=== PATIENT | male | born 2000 | race American Indian/Alaskan Native ===

== ENCOUNTER 2018-04-17 15:55 | Emergency (ER) | payer SELFPAY ==
--- NOTE | 2018-04-17 17:56 | Emergency Department Report ---
Blank Doc - Documentation Documentation: 17 y.o. male presents with pain to bilateral great toes from ingrown toenails x 1 week. Pain is 6/10 on pain scale. no other cc Fast Track for evaluation
[2018-04-17] MEDS ORDERED: TYLENOL PO ONE (21:45)
[2018-04-17] MEDS ORDERED: TYLENOL ONE (21:48)
--- NOTE | 2018-04-17 22:43 | Emergency Department Report ---
ED Lower Extremity HPI - General Chief Complaint: Extremity Injury, Lower Stated Complaint: INGROWN TOENAIL Time Seen by Provider: 04/17/18 17:53 Source: patient Mode of arrival: Ambulatory Limitations: No Limitations - Related Data Previous Rx's Medication Instructions Recorded Last Taken Type Cephalexin [Keflex] 500 mg PO TID 10 Days #30 capsule 04/17/18 Unknown Rx Ibuprofen 800 mg PO TID PRN #30 tablet 04/17/18 Unknown Rx Terbinafine HCl [Lamisil At] 30 gm TP BID 14 Days #1 tube 04/17/18 Unknown Rx Allergies Allergy/AdvReac Type Severity Reaction Status Date / Time No Known Allergies Allergy Verified 04/17/18 21:48 ED Review of Systems ROS: Stated complaint: INGROWN TOENAIL Other details as noted in HPI ED Past Medical Hx - Social History Smoking Status: Never Smoker Substance Use Type: Marijuana - Medications Home Medications: Home Medications Medication Instructions Recorded Confirmed Last Taken Type Cephalexin [Keflex] 500 mg PO TID 10 Days #30 capsule 04/17/18 Unknown Rx Ibuprofen 800 mg PO TID PRN #30 tablet 04/17/18 Unknown Rx Terbinafine HCl [Lamisil At] 30 gm TP BID 14 Days #1 tube 04/17/18 Unknown Rx ED Physical Exam - General Limitations: No Limitations ED Course Vital Signs 04/17/18 04/17/18 17:54 22:03 Temperature 98.3 F Pulse Rate 60 Respiratory 16 18 Rate Blood Pressure 123/61 O2 Sat by Pulse 100 Oximetry Critical care attestation.: If time is entered above; I have spent that time in minutes in the direct care of this critically ill patient, excluding procedure time. ED Disposition Clinical Impression: Toe pain, bilateral Tinea pedis Qualifiers: Laterality: bilateral Qualified Code(s): B35.3 - Tinea pedis Disposition: DC-01 TO HOME OR SELFCARE Is pt being admited?: No Does the pt Need Aspirin: No Condition: Stable Instructions: Tinea Pedis (ED), Ingrown Nail (ED) Prescriptions: Cephalexin [Keflex] 500 mg PO TID 10 Days #30 capsule Ibuprofen 800 mg PO TID PRN #30 tablet PRN Reason: pain Terbinafine HCl [Lamisil At] 30 gm TP BID 14 Days #1 tube Referrals: CHRISTINA,KASH, DPM [Referring] - 3-5 Days Forms: Work/School Release Form(ED) Time of Disposition: 22:43
--- NOTE | 2018-04-17 22:49 | Emergency Department Report ---
ED Lower Extremity HPI - General Chief Complaint: Extremity Injury, Lower Stated Complaint: INGROWN TOENAIL Time Seen by Provider: 04/17/18 17:53 Source: patient Mode of arrival: Ambulatory Limitations: No Limitations - History of Present Illness Initial Comments: pt presents for bilat toe pain with tinea and ingrown nails this is chronic problem with pain and erythema to left nail, no drainage no fever no chills no n/v pt is ambulatory without gait distrubance there is no bleeding no deformity no numbness or tingling MD Complaint: other (Tinea pedis ) Onset/Timin -: month(s) Injury: Foot: Right, Left (great toes ) Place: home Severity: moderate Severity scale (0 -10): 3 Improves With: nothing, other (nothing tried ) Worsens With: movement, palpation Associated Symptoms: other (itching ) - Related Data Previous Rx's Medication Instructions Recorded Last Taken Type Cephalexin [Keflex] 500 mg PO TID 10 Days #30 capsule 04/17/18 Unknown Rx Ibuprofen 800 mg PO TID PRN #30 tablet 04/17/18 Unknown Rx Terbinafine HCl [Lamisil At] 30 gm TP BID 14 Days #1 tube 04/17/18 Unknown Rx Allergies Allergy/AdvReac Type Severity Reaction Status Date / Time No Known Allergies Allergy Verified 04/17/18 21:48 ED Review of Systems ROS: Stated complaint: INGROWN TOENAIL Other details as noted in HPI Constitutional: denies: chills, fever Eyes: denies: eye pain, eye discharge, vision change ENT: denies: ear pain, throat pain Respiratory: denies: cough, shortness of breath, wheezing Cardiovascular: denies: chest pain, palpitations Endocrine: no symptoms reported (chart SHE) Gastrointestinal: denies: abdominal pain, nausea, diarrhea Genitourinary: denies: urgency, dysuria Musculoskeletal: other (bilat toe pain rash). denies: back pain, joint swelling, arthralgia Skin: as per HPI (110). denies: rash, lesions Neurological: denies: headache, weakness, paresthesias Psychiatric: denies: anxiety, depression Hematological/Lymphatic: denies: easy bleeding, easy bruising ED Past Medical Hx - Social History Smoking Status: Never Smoker Substance Use Type: Marijuana - Medications Home Medications: Home Medications Medication Instructions Recorded Confirmed Last Taken Type Cephalexin [Keflex] 500 mg PO TID 10 Days #30 capsule 04/17/18 Unknown Rx Ibuprofen 800 mg PO TID PRN #30 tablet 04/17/18 Unknown Rx Terbinafine HCl [Lamisil At] 30 gm TP BID 14 Days #1 tube 04/17/18 Unknown Rx ED Physical Exam - General Limitations: No Limitations General appearance: alert, in no apparent distress - Head Head exam: Present: atraumatic, normocephalic - Eye Eye exam: Present: normal appearance, PERRL, EOMI - ENT ENT exam: Present: mucous membranes moist - Neck Neck exam: Present: normal inspection - Respiratory Respiratory exam: Present: normal lung sounds bilaterally. Absent: respiratory distress - Cardiovascular Cardiovascular Exam: Present: regular rate, normal rhythm. Absent: systolic murmur, diastolic murmur, rubs, gallop - GI/Abdominal GI/Abdominal exam: Present: soft, normal bowel sounds. Absent: bruit, hernia - Rectal Rectal exam: Present: deferred - Extremities Exam Extremities exam: Present: normal inspection, full ROM, tenderness (bilat toe all), normal capillary refill. Absent: pedal edema, joint swelling, calf tenderness - Back Exam Back exam: Present: normal inspection, full ROM. Absent: tenderness, CVA tenderness (R), CVA tenderness (L), muscle spasm, rash noted - Neurological Exam Neurological exam: Present: alert, oriented X3, CN II-XII intact, normal gait. Absent: reflexes normal - Psychiatric Psychiatric exam: Present: normal affect, normal mood - Skin Skin exam: Present: warm (although), dry, intact, normal color, erythema ( tinea bilat great toe no paronychia last). Absent: rash ED Course Vital Signs 04/17/18 04/17/18 17:54 22:03 Temperature 98.3 F Pulse Rate 60 Respiratory 16 18 Rate Blood Pressure 123/61 O2 Sat by Pulse 100 Oximetry ED Lower Extremity MDM - Medical Decision Making this is bilat tinea pedis with right toe cellulitis , plan:, keflex, lamasil,ibuprofen, follow up with podiatry pt verbalizeda agreement and understanding of same. Critical care attestation.: If time is entered above; I have spent that time in minutes in the direct care of this critically ill patient, excluding procedure time. ED Disposition Clinical Impression: Cellulitis of toe of right foot Tinea pedis Qualifiers: Laterality: bilateral Qualified Code(s): B35.3 - Tinea pedis Disposition: TO HOME OR SELFCARE Is pt being admited?: No Does the pt Need Aspirin: No Condition: Stable Instructions: Tinea Pedis (ED), Ingrown Nail (ED) Prescriptions: Cephalexin [Keflex] 500 mg PO TID 10 Days #30 capsule Ibuprofen 800 mg PO TID PRN #30 tablet PRN Reason: pain Terbinafine HCl [Lamisil At] 30 gm TP BID 14 Days #1 tube Referrals: KASH VASQUEZ DPM [Referring] - 3-5 Days Forms: Work/School Release Form(ED) Time of Disposition: 23:01
[2018-04-17 22:54] VITALS: BP 118/64
== END 2018-04-17 22:53 | disposition home or self-care (01) ==
LOC: ED 15:55
DX: B35.3 Tinea pedis (principal); F12.10 Cannabis abuse, uncomplicated